=== PATIENT | female | born 1975 | race Caucasian/White ===

== ENCOUNTER 2019-06-22 13:45 | Emergency (ER) | payer MEDICAID ==
[~2019-06-22] VITALS: Ht 157.5 cm; Wt 86.6 kg
[~2019-06-22 13:45] MED LIST: NOVR SUBQ; PREN-385 PO
[2019-06-22 14:14] VITALS: BP 158/78
--- NOTE | 2019-06-22 14:23 | NUR ---
43 Y/O FEMALE PRESENTS WITH SOB, CHEST TIGHTNESS SINCE YESTERDAY. PATIENT WAS AT HOME WHEN SOB BEGAN AND HAS BEEN FEELING ANXIOUS SINCE SOB EPISODE. RESP ARE EVEN AND UNLABORED. LUNG SOUNDS CLEAR IN BILAT LOBES. NO ACCESSORY MUSCLE USE NOTED. PT DENIES CHEST PAIN, BUT FEELS TIGHTNESS IN CHEST. DENIES ANY RECENT ILLNESS. NO TRAVEL OUTSIDE OF [place] RECENTLY. AAOX3. CAP REFILL <3. NORMO ACTIVE BOWEL SOUNDS. VSS. NO PMH NKA
[2019-06-22] MEDS ORDERED: LORazepam 2 MG/ML VIAL IM ONE (14:45)
[2019-06-22] MEDS ORDERED: NACL 0.9% 500 ML IV ONE (15:45)
[2019-06-22] MEDS ORDERED: ASPIRIN 81 MG TAB.CHEW PO ONE (15:45)
[2019-06-22] MEDS ORDERED: LORazepam 2 MG/ML VIAL IVP ONE (15:45)
[2019-06-22 16:11] LABS: BASOPHILS # (AUTO) 0.2 K/uL (0.00-0.22); BASOPHILS % (AUTO) 1.6 % (0.0-2.0); EOSINOPHILS % (AUTO) 0.2 % (0.0-4.0); HEMATOCRIT 40.6 % (36-48); HEMOGLOBIN 13.5 g/dL (12.0-16.0); LYMPHOCYTES # (AUTO) 1.9 K/uL (2.5-16.5); LYMPHOCYTES % (AUTO) 17.8 % (20.5-51.1); MEAN CORPUSCULAR HEMOGLOBIN 30 pg (27-31); MEAN CORPUSCULAR HGB CONC 33 g/dL (33-37); MEAN CORPUSCULAR VOLUME 88.5 fL (80-94); MONOCYTES # (AUTO) 0.7 K/uL (0.8-1.0); MONOCYTES % (AUTO) 6.2 % (1.7-9.3); NEUTROPHILS % (AUTO) 74.2 % (42.2-75.2); PLATELET COUNT (AUTO) 261 K/uL (140-450); RED BLOOD CELL COUNT(AUTO) 4.58 MIL/uL (4.20-5.40); RED CELL DISTRIBUTION WIDTH 12.4 % (11.6-13.7); WHITE BLOOD COUNT (AUTO) 10.8 K/uL (4.8-10.8)
[2019-06-22 16:43] LABS: ALBUMIN 4.6 g/dL (3.4-5.0); ANION GAP 17.6 (8-16); CARBON DIOXIDE 24.6 mmol/L (21-32); CREATININE 0.6 mg/dL (0.6-1.3); POTASSIUM 4.2 mmol/L (3.5-5.1); TOTAL BILIRUBIN 0.6 mg/dL (0.0-1.0)
[2019-06-22 18:57] VITALS: BP 158/78
== END 2019-06-22 18:58 | disposition home or self-care (01) ==
LOC: MED 13:45
DX: F41.9 Anxiety disorder, unspecified (principal); R06.02 Shortness of breath; R00.2 Palpitations; Z79.899 Other long term (current) drug therapy
CPT/HCPCS: 36415; 71045; 80053; 84484; 85025; 96372; 99284; J2060; Q0092; 93005; J7030

== ENCOUNTER 2021-09-24 04:16 | Emergency (ER) | payer MEDICAID ==
[~2021-09-24] VITALS: Ht 162.6 cm; Wt 83.9 kg
[2021-09-24 04:19] VITALS: BP 164/86
--- NOTE | 2021-09-24 04:29 | NUR ---
patient ambulated to bed 10
--- NOTE | 2021-09-24 04:36 | NUR ---
45 Y/O F BIBS W C/O OF ABD PAIN 10/22. PT STATES SHE WAS DIAGNOSED WITH GASTRITIS 3 DAYS AGO BY HER PCP. PT TOOK TYLENOL AT 1AM WITH LITTLE RELIF. PMH: PRE-DIABETIC MEDS: DENIES NKDA
[2021-09-24] MEDS ORDERED: DICYCLOMINE HCL LIQUID 20 MG, ALUMINUM HYD/MAG/SIMETHICONE 30 ML, LIDOCAINE VISCOUS 2% ... PO ONE ×3 (04:45)
--- NOTE | 2021-09-24 04:51 | NUR ---
ERMD at bedside for examination
[2021-09-24] MEDS ORDERED: ALUM355S59 PO (04:59)
[2021-09-24] MEDS ORDERED: ALUMINUM HYD/MAG/SIMETHICONE 30 ML UDC ONE (05:03)
[2021-09-24] MEDS ORDERED: DICYCLOMINE HCL LIQUID 10 MG/5 ML UDC ONE (05:03)
--- NOTE | 2021-09-24 05:33 | NUR ---
BLOOD WALKED TO LAB
[2021-09-24 05:36] LABS: BASOPHILS % (AUTO) 0.3 % (0.0-2.0); EOSINOPHILS % (AUTO) 0.4 % (0.0-4.0); HEMATOCRIT 34.3 % (36-48); HEMOGLOBIN 11.7 g/dL (12.0-16.0); LYMPHOCYTES # (AUTO) 1.7 K/uL (2.5-16.5); LYMPHOCYTES % (AUTO) 18.7 % (20.5-51.1); MEAN CORPUSCULAR HEMOGLOBIN 30 pg (27-31); MEAN CORPUSCULAR HGB CONC 34 g/dL (33-37); MEAN CORPUSCULAR VOLUME 87.4 fL (80-94); MONOCYTES # (AUTO) 0.6 K/uL (0.8-1.0); MONOCYTES % (AUTO) 6.5 % (1.7-9.3); NEUTROPHILS # (AUTO) 6.6 K/uL (1.8-7.7); NEUTROPHILS % (AUTO) 74.1 % (42.2-75.2); PLATELET COUNT (AUTO) 249 K/uL (140-450); RED BLOOD CELL COUNT(AUTO) 3.92 MIL/uL (4.20-5.40); RED CELL DISTRIBUTION WIDTH 14.2 % (11.6-13.7); WHITE BLOOD COUNT (AUTO) 8.9 K/uL (4.8-10.8)
--- NOTE | 2021-09-24 05:49 | NUR ---
PT HAS RELIEF FROM MEDICATION. PAIN 0/10 CURRENTLY
--- NOTE | 2021-09-24 06:49 | NUR ---
PT MADE AWARE RESULTS ARE STILL PENDING FOR BLOOD WORK
--- NOTE | 2021-09-24 06:56 | NUR ---
PT OFFERED A BLANKET, PT DECLINED
--- NOTE | 2021-09-24 07:13 | NUR ---
Pt report given to Eli. Transfer of care at this time.
[2021-09-24 07:17] LABS: ALBUMIN 3.9 g/dL (3.4-5.0); ANION GAP 14.7 (8-16); CARBON DIOXIDE 24.2 mmol/L (21-32); CREATININE 0.7 mg/dL (0.6-1.3); POTASSIUM 3.9 mmol/L (3.5-5.1); TOTAL BILIRUBIN 0.4 mg/dL (0.0-1.0)
[2021-09-24 07:39] VITALS: BP 124/70
--- NOTE | 2021-09-24 07:39 | NUR ---
Patient discharged with v/s stable. Written and verbal after care instructions given and explained. Patient verbalized understanding. Ambulatory with steady gait. All questions addressed prior to discharge. Advised to follow up with PMD.
== END 2021-09-24 07:39 | disposition home or self-care (01) ==
LOC: MED 04:16
DX: K29.70 Gastritis, unspecified, without bleeding (principal); D64.9 Anemia, unspecified; Z79.899 Other long term (current) drug therapy
CPT/HCPCS: 36415; 80053; 83690; 85025; 99283